=== PATIENT | female | born 1960 | race Caucasian/White ===

== ENCOUNTER 2018-10-02 11:59 | Day surgery (SDC) | payer OTHER ==
[~2018-10-02 11:59] MED LIST: PROPOFOL 200 MG INJ
[2018-10-02] MEDS ORDERED: PROPOFOL 40 ML (14:06)
[2018-10-02] MEDS ORDERED: LIDOCAINE 2% (SDV) 5 ML INJ (14:06)
[2018-10-02] MEDS ORDERED: FENTAnyl 50 MCG/ML VIAL IV (14:30)
[2018-10-02] MEDS ORDERED: ALBUTEROL 0.083% (NEB) 2.5 MG/3 ML AMP HHN (14:30)
[2018-10-02] MEDS ORDERED: ACETAMINOPHEN 500 MG TAB PO (14:30)
[2018-10-02] MEDS ORDERED: ONDANSETRON 4 MG INJ IV (14:30)
== END 2018-10-02 15:22 | disposition home or self-care (01) ==
LOC: GIL 11:59
DX: Z12.11 Encounter for screening for malignant neoplasm of colon (principal); K64.8 Other hemorrhoids; E78.5 Hyperlipidemia, unspecified; E11.9 Type 2 diabetes mellitus without complications; I10 Essential (primary) hypertension
CPT/HCPCS: 45378; 82962